=== PATIENT | female | born 1990 | race Caucasian/White ===

== ENCOUNTER 2023-05-14 10:58 | Emergency (ER) | payer BC ==
[~2023-05-14] VITALS: Ht 157.5 cm; Wt 75.0 kg
[2023-05-14 12:01] LABS: URINE HCG NEGATIVE (NEG)
[2023-05-14 12:03] LABS: BASOPHILS # (AUTO) 0.1 X10'3 (0-0.2); BASOPHILS % (AUTO) 0.8 % (0-1); EOSINOPHILS # (AUTO) 0.1 X10'3 (0-0.9); EOSINOPHILS % (AUTO) 1.1 % (0-6); HEMOGLOBIN 14.5 g/dl (12.0-16.0); LYMPHOCYTES # (AUTO) 1.6 X10'3 (1.1-4.8); LYMPHOCYTES % (AUTO) 19.7 % (21-51); MEAN CORPUSCULAR HEMOGLOBIN 32.2 PG (27.0-31.0); MEAN CORPUSCULAR HGB CONC 34.6 g/dL (33.0-36.5); MEAN CORPUSCULAR VOLUME 93.1 FL (78-98); MEAN PLATELET VOLUME 7.8 FL (7.4-10.4); MONOCYTES # (AUTO) 0.4 X10'3 (0-0.9); MONOCYTES % (AUTO) 4.6 % (2-12); NEUTROPHILS # (AUTO) 5.9 X10'3 (1.8-7.7); NEUTROPHILS % (AUTO) 73.8 % (42-75); PLATELET COUNT 349 X10'3 (140-440); RED BLOOD COUNT 4.51 X10'6 (4.20-5.60); RED CELL DISTRIBUTION WIDTH 12.4 % (11.5-14.5)
[2023-05-14 12:04] LABS: BILIRUBIN,URINE NEGATIVE (Neg); CLARITY,URINE CLEAR (Clear); COLOR,URINE STRAW (Yellow); GLUCOSE, URINE NEGATIVE (Neg); KETONES,URINE NEGATIVE (Neg); LEUKOCYTE ESTERASE ,URINE NEGATIVE (Neg); NITRITES, URINE NEGATIVE (Neg); OCCULT BLOOD,URINE NEGATIVE (Neg); PROTEIN,URINE NEGATIVE (Neg); UROBILINOGEN,URINE 0.2 E.U/dL (0.2-1.0)
[2023-05-14 12:07] VITALS: TEMP 97.8
[2023-05-14 12:09] LABS: UA COLLECTION TYPE CLN CATCH MIDSTREAM
[2023-05-14 12:16] LABS: ALANINE AMINOTRANSFERASE 16 U/L (12-78); ALBUMIN/GLOBULIN RATIO 1.1 (1.1-1.5); ALKALINE PHOSPHATASE 59 IU/L (46-116); ASPARTATE AMINO TRANSFERASE 19 U/L (10-37); BILIRUBIN,TOTAL 0.5 MG/DL (0.1-1.0); CALCIUM 9.2 MG/DL (8.5-10.1); LIPASE 85 U/L (73-393); TOTAL CARBON DIOXIDE 27.7 MMOL/L (24-32); TOTAL PROTEIN 7.6 G/DL (6.4-8.2)
[2023-05-14 12:45] LABS: ANION GAP 8 (8-16); BLOOD UREA NITROGEN 9 MG/DL (7-18); BUN/CREATININE RATIO 10.3 (10.0-20.0); CHLORIDE 106 MMOL/L (99-107); CREATININE 0.87 MG/DL (0.40-0.90); GLUCOSE 92 MG/DL (70-104); POTASSIUM 3.6 MMOL/L (3.5-5.1); SODIUM 142 MMOL/L (135-145); eCRCL 74 ML/MIN; eGFR 76 ML/MIN
[2023-05-14] MEDS ORDERED: LIDOcaine Viscous 15ml cup MM PRN (13:15)
[2023-05-14] MEDS ORDERED: mag hydrox/Alum hydrox/simeth 30ml oral suspension PO ONE (13:15)
[2023-05-14 13:20] VITALS: BP 120/79; PULSE 81; RESP 18; O2SAT 97
[2023-05-14] MEDS ORDERED: NAPR-56 PO (13:38)
== END 2023-05-14 14:01 | disposition home or self-care (01) ==
LOC: ER 10:58
DX: K29.00 Acute gastritis without bleeding (principal); R42 Dizziness and giddiness; Z88.2 Allergy status to sulfonamides; Z88.5 Allergy status to narcotic agent; Z79.899 Other long term (current) drug therapy
CPT/HCPCS: 36415; 80053; 81003; 81025; 83690; 85025; 99283

== ENCOUNTER 2025-09-05 10:08 | Emergency (ER) | payer BC ==
[~2025-09-05] VITALS: Ht 160 cm; Wt 75.0 kg
[2025-09-05 10:12] VITALS: PULSE 102; TEMP 98.4
--- NOTE | 2025-09-05 12:16 | Physician Documentation ---
History of Present Illness ~ Chief Complaint: Wrist pain Stated Complaint: PAIN IN R WRIST/ARM Time Seen by MD: 11:28 OK to notify your PCP?: Yes Primary Medical Doctor: DR ABBASI Source: patient Mode of Arrival: POV Exam Limitations: no limitations HPI This is a 35-year-old female who comes in complaining of pain of her right hand and wrist. This is a very well documented ongoing issue for this patient. She states that is she has been to specialist in his had MRIs of the area as well as nerve conduction velocity studies. All of which were normal. She states she has also had rheumatological markers through lab work which were normal as well. She says she started a very low dose prednisone yesterday at 5 mg which helped however when the prednisone wore off the pain became excruciating prompting her to come to the ER. She denies swelling or discoloration. She states that is she has been evaluated for Raynaud's and carpal tunnel however they did not believe that is what is causing her pain. She has yet to see a museum service scheduler and believes that is she has undiagnosed connective tissue disease. She denies pain that radiates down from the side of the neck. Tetanus within 5 years: No Medication Reconciliation Allergies: Coded Allergies: Sulfa (Sulfonamide Antibiotics) (Verified Allergy, Unknown, 09/05/25) codeine (Verified Allergy, Unknown, anaphylaxis, 09/05/25) Scheduled Prednisone* (Prednisone*), 1 TAB PO DAILY Physical Exam Vital Signs: Temperature: 98.4, Source: Temporal, Heart Rate: 102, Respiratory Rate: 16, BP: 133/87, Pulse Oximetry: 99, Weight: 75.000 Oxygen Flow Rate: 0 Pulse Oximetry Reflects: adequate oxygenation General Appearance: alert, WD/WN, no apparent distress Wrist No obvious edema or discoloration of the wrist or hand. Right radial pulses 2+. There is decreased range of motion of the right wrist subjectively secondary to pain. No obvious functional deficits. No bony abnormalities of the distal radius ulna, radiocarpal joint, carpals and metacarpals . Hand See wrist exam. Skin: normal color, warm/dry Progress Results/Orders Results/Orders Completed Orders - KENDAL HATFIELD Dexamethasone Inj (Decadron 10mg/Ml Inj) (09/05/25 12:11) Ketorolac Trometh 30mg/Ml Vial (Toradol (09/05/25 12:15) Medications Received in ER Medications (Trade) Dose Ordered Sig/Rose Mary Route PRN Reason Start Time Stop Time Status Last Admin Dose Admin (Decadron 10mg/ ml inj) 10 mg ONCE STAT IM 09/05/25 12:11 09/05/25 12:12 DC 09/05/25 12:19 10 MG (Toradol inj. 30mg/ml) 30 mg ONCE ONCE IM 09/05/25 12:15 09/05/25 12:16 DC 09/05/25 12:20 30 MG Vital Signs 09/05/25 09/05/25 10:12 12:20 Temp 98.4 Pulse 102 Resp 16 16 B/P (MAP) 133/87 Pulse Ox 99 O2 Flow Rate 0 Medical Decision Making Additional information obtaine: N/A Findings I gave the patient Decadron 10 mg IM and Toradol 30 mg IM after which she said she feels much better. She has been having a hand much more than prior to medication administration. We are going to place the patient on a tapered course of prednisone with the instructions to follow up with the primary care physician for recheck in the next one or two days. Return to the ER for any worsening or concerning symptoms. General Diff Dx:Considerations: Include: Abrasion, Contusion, Fracture, Hematoma, Laceration, Malunion, Neurovascular injury, Open fracture, Sprain, Ulcer, Other Shoulder Diff Dx:Consideration: Include: AC separation, Adhesive capsulitis, Arthritis, Bicipital tendonitis, Calcific tendonitis, Cervical disc disease, Contusion, Dislocation, Fracture-humerus, Fracture-scapula, Fracture-clavicle, GB disease, Hematoma, Impingement syndrome, Myocardial infarction, Neurovascular injury, Open fracture-humerus, Open fracture-scapula, Open fracture-clavicle, Rotator cuff injury, SC dislocatoin, Sprain, Subacromial bursitis, Other Elbow Diff Dx:Considerations: Include: Abrasion, Arthritis, Contustion, DJD, Fracture-humerus, Fracture-radial head, Fracture-radius, Fracture-ulna, Gout, Hematoma, Laceration, Neurovascular injury, Olecranon bursitis, Open fracture, Osteomyelitis, Radial head subluxation, Rheumatoid arthritis, Septic, Sprain, Ulcer, Other Wrist Diff Dx:Considerations: Include: Abrasion, Arthritis, DJD, Gout, Rheumatoid, Septic, Carpal tunnel snydrome, Contusion, Dislocation, Fracture- carpal, Fracture-radius, Fracture-ulna, Ganglion, Laceration, Neurovascular injury, Open fracture, Strain, Other Hand Diff Dx:Considerations: Include: Abrasion, Arthritis, Contusion, DJD, Felon, Fracture-carpal, Fracture-metacarpal, Fracture-phalynx, Fracture-radius, Fracture-ulna, Gout, Hematoma, Herpetic elinor, Laceration, Neurovascular injury, Open fracture, Paronychia, Rheumatoid arthritis, Septic, Sprain, Subungual hematoma, Tenosynovitis, Volar plate injury, Cellulitis, Malunion, Other Finger Diff Dx:Considerations: Include: Abrasion, Cellulitis, Contusion, Dislocation, Fracture, Hematoma, Laceration, Neurovascular injury, Open fracture, Subungual hematoma, Other Additional Comment Complex regional pain syndrome. Raynaud's syndrome. Ulnar neuritis. Carpal tunnel syndrome. Cervical radiculopathy. Departure Disposition: 01 HOME / SELF CARE / HOMELESS Impression: Primary Impression: Complex regional pain syndrome Condition: Improved Discharge Instructions: Complex Regional Pain Syndrome, Wrist Pain, Adult Additional Instructions: Take the tapered dose of prednisone as prescribed and follow up with the primary care physician for recheck in the next one or two days. Return to the ER for any worsening or concerning symptoms Referrals: NO PRIMARY CARE PROVIDER (PCP) Prescriptions Prednisone* (Prednisone*) 20 Mg Tablet 1 TAB PO DAILY for 9 Days, #18 TAB Take three tabs p.o. once a day for three days. Then take two tabs p.o. once a day for three days. Then take one tab p.o. once a day for three days Prov: KENDAL HATFIELD 09/05/25 Signature Scribe Signature: No scribe Attestation: The note accurately reflects work and decisions made by me.Kendal ZAMUDIO 09/05/25 13:48 KENDAL HATFIELD Sep 05, 2025 12:16
[2025-09-05] MEDS: dexamethasone sod phosphate 10mg/ml inj IM STA (12:19)
[2025-09-05] MEDS: ketorolac trometh 30MG/ML vial 30 MG/ML VIAL IM ONE (12:20)
[2025-09-05] MEDS ORDERED: PRED20TA PO (13:48)
[2025-09-05 14:02] VITALS: BP 115/79; RESP 16; O2SAT 96
== END 2025-09-05 14:08 | disposition home or self-care (01) ==
LOC: ER 10:08
DX: G90.511 Complex regional pain syndrome I of right upper limb (principal); Z88.2 Allergy status to sulfonamides; Z88.5 Allergy status to narcotic agent; Z79.899 Other long term (current) drug therapy
CPT/HCPCS: 96372; 99284; J1100; J1885